=== PATIENT | female | born 1970 | race Caucasian/White ===

== ENCOUNTER 2025-11-05 14:28 | Outpatient (CLI) | payer OTHER, SELFPAY ==
--- NOTE | ~2025-11-05 | CT_ITS ---
EXAMINATION: CT lung screening DATE: 11/05/2025 15:21 INDICATION: NICOTINE DEPENDENCE TECHNIQUE: Computed tomography (CT) of the chest was performed without intravenous contrast. Additional 3D reconstructions utilizing coronal maximum intensity projection (MIP) were performed. Automated exposure control and iterative reconstruction technique were employed. The dose-length product was 19 2.86 mGy-cm. COMPARISON: None FINDINGS: Large calcified nodule along the cephalad aspect of the right major fissure along with calcified right hilar lymph nodes consistent with old granulomatous disease. There are few scattered bilateral <4 mm noncalcified pulmonary nodules. Mild linear discoid atelectasis at the lung bases in the lingula, right middle and bilateral lower lobes. No pleural effusion. Heart size is normal. Atherosclerotic coronary artery calcific location. No pericardial effusion. Thoracic aorta is normal in caliber. No pathologically enlarged thoracic lymphadenopathy. Mild thoracic spondylosis. A couple old left-sided rib fractures. IMPRESSION: 1. Lung-RADS category 2: Benign appearance or behavior. Continue annual screening with noncontrast low-dose chest CT in 12 months. Reviewed, dictated and finalized at location A. MACHINE [employer]ER IMPRESSION: 1. Lung-RADS category 2: Benign appearance or behavior. Continue annual screeni ng with noncontrast low-dose chest CT in 12 months.
== END 2025-11-05 14:29 | disposition home or self-care (01) ==
PROVIDERS: PCP Internal Medicine; Visit Provider Internal Medicine
DX: L40.0 Psoriasis vulgaris (principal); G89.21 Chronic pain due to trauma; E78.2 Mixed hyperlipidemia; I10 Essential (primary) hypertension; Z79.891 Long term (current) use of opiate analgesic; E66.811 Obesity, class 1; G82.54 Quadriplegia, C5-C7 incomplete; J96.00 Acute respiratory failure, unspecified whether with hypoxia or hypercapnia; S72.001A Fracture of unspecified part of neck of right femur, initial encounter for closed fracture; X58.XXXA Exposure to other specified factors, initial encounter
CPT/HCPCS: 71271